=== PATIENT | female | born 1990 | race Caucasian/White ===

== ENCOUNTER → 2018-10-26 | Outpatient (REF) | payer BC ==
[2018-10-26 22:45] LABS: CHLAMYDIA DNA AMPLIFICATION NEGATIVE (NEGATIVE); GC DNA AMPLIFICATION NEGATIVE (NEGATIVE)
== END ==
LOC: M LABDRWAD 19:26
PROVIDERS: ATTEND Obstetrics & Gynecology
DX: Z34.82 Encounter for supervision of other normal pregnancy, second trimester (principal); Z3A.00 Weeks of gestation of pregnancy not specified

== ENCOUNTER → 2018-11-07 | Outpatient (CLI) | payer BC ==
--- NOTE | 2018-11-08 03:01 | REP ---
Clinical: Anatomical evaluation. Comparison: Cephalic . Findings: Examination demonstrates a single live intrauterine in cephalic presentation. motion is identified by technologist. Placenta is noted fundally and grade 1 without evidence for placenta previa or abruption. Amniotic fluid volume is normal. Cervix measures 3.1 cm in length and appears closed. No evidence for nuchal cord. Gestational age by LMP 20 weeks 6 days with SONALI 03/21/2019 . Gestational age by current measurements 20 weeks 6 days with SONALI 03/21/2019 . FHR equals 139 beats per minute. BPD 4.8 cm 20 weeks 3 days HC 17.7 cm 20 weeks 1 day AC 16.7 cm 21 weeks 5 days FL 3.3 cm 20 weeks 2 days HL 3.4 cm 21 weeks 3 days HC/AC ratio 1.06 Estimated weight 390 grams ( 49 percentile). Anatomical assessment demonstrates normal structures including cranium, choroid plexus, cavum, cerebellum/posterior fossa, facial features, lungs, four-chamber heart/ventricular outflow tracts, diaphragm, stomach, cord insertion/three-vessel cord, kidneys/bladder, spine, and extremities. Impression: Single live intrauterine in cephalic presentation demonstrating appropriate interval growth. 2. Anatomical assessment is complete and normal. Electronically Signed by Sohan Dumont MD 11/08/2018 02:53 A
== END ==
LOC: M RAD 16:10
PROVIDERS: ATTEND Obstetrics & Gynecology
DX: Z34.82 Encounter for supervision of other normal pregnancy, second trimester (principal); Z3A.20 20 weeks gestation of pregnancy

== ENCOUNTER → 2018-12-26 | Outpatient (CLI) | payer BC ==
[2018-12-26 18:17] LABS: BASO % 0.2 % (0.0-1.0); EOS # 0.2 10^3/uL (0.0-0.50); EOS % 1.4 % (0.0-3.0); HEMATOCRIT 33.7 % (36.0-47.0); HEMOGLOBIN 10.9 g/dl (12.0-15.5); LYMPH # 1.9 10^3/uL (1.5-6.5); LYMPH % 16.1 % (24.0-44.0); MEAN CORPUSCULAR HEMOGLOBIN 29.7 pg (27.0-33.0); MEAN CORPUSCULAR HGB CONC 32.3 g/dl (32.0-36.5); MEAN CORPUSCULAR VOLUME 91.8 fl (80.0-96.0); MONO # 0.7 10^3/uL (0.0-0.8); NEUTROPHILS # 8.9 10^3/uL (1.8-7.7); NEUTROPHILS % 75.4 % (36.0-66.0); PLATELET COUNT, AUTOMATED 265 10^3/uL (150-450); RED BLOOD COUNT 3.67 10^6/uL (4.00-5.40); WHITE BLOOD COUNT 11.8 10^3/uL (4.0-10.0)
== END ==
LOC: M SMT 13:01
PROVIDERS: ATTEND Specialist
DX: Z34.82 Encounter for supervision of other normal pregnancy, second trimester (principal); Z3A.00 Weeks of gestation of pregnancy not specified

== ENCOUNTER → 2019-01-03 | Outpatient (CLI) | payer BC | LOC: M LAB 07:10 | PROVIDERS: ATTEND Obstetrics & Gynecology | DX: Z34.82 Encounter for supervision of other normal pregnancy, second trimester (principal); Z3A.00 Weeks of gestation of pregnancy not specified ==

== ENCOUNTER → 2019-02-28 | Outpatient (REF) | payer BC | LOC: M LAB REF 17:02 | PROVIDERS: ATTEND Advanced Practice Midwife | DX: Z34.03 Encounter for supervision of normal first pregnancy, third trimester (principal) ==

== ENCOUNTER → 2019-03-01 | Outpatient (CLI) | payer BC | LOC: M SMT 10:58 | PROVIDERS: ATTEND Advanced Practice Midwife | DX: Z34.03 Encounter for supervision of normal first pregnancy, third trimester (principal); Z3A.00 Weeks of gestation of pregnancy not specified ==

== ENCOUNTER 2019-04-05 06:39 | Inpatient (IN) | payer BC ==
[~2019-04-05] VITALS: Ht 154.9 cm; Wt 91.4 kg
[2019-04-05] VITALS (18 sets, daily range): BP systolic 118–161; BP diastolic 70–97
[2019-04-05] MEDS ORDERED: PRENTAB9 PO (08:33)
[2019-04-05] MEDS ORDERED: FLON1SPR NARES (08:33)
[2019-04-05] MEDS ORDERED: VALA500T5 PO (08:33)
[2019-04-05] MEDS ORDERED: OXYTOCIN DRIP 30 UNITS in IV 1 EA IV SCH (08:45)
[2019-04-05] MEDS: LR 1,000 ML IV SCH ×2 (08:52→16:43)
--- NOTE | 2019-04-05 09:11 | HPE ---
DATE OF ADMISSION: 04/05/2019 Susana is a 28-year-old, 1, para 0, at 41 weeks gestation, expected date of confinement (EDC) of 03/29/2019 based on first trimester ultrasound. She presents to labor and delivery today for induction of labor per consult with Dr. Chiki Ngo due to post-term . She denies any regular painful contractions, vaginal bleeding and leakage of fluid. The fetus has been active. Her care was initiated at [facility] in the first trimester. 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 She has been taking Valtrex prophylactically since week 36. OBSTETRICAL HISTORY: Primigravida. OBSTETRIC LABS: A+. Antibody screen negative. ASCUS, HPV negative Pap. Varicella immune, rubella immune, VDRL nonreactive. Urine culture no growth. Hepatitis B surface antigen has not been ordered and will be ordered today. Her HIV is negative. Hepatitis C antibody not done. Gonorrhea and chlamydia negative. Lead negative. Genetic screening labs negative for aneuploidy. Gestational diabetic screening abnormal at 171 with a normal 3-hour glucose tolerance test - fasting 83, 1-hour 151, 2-hour 149 and 3-hour 128. GBS is negative. PAST MEDICAL HISTORY: Anxiety, depression, seasonal allergies, abnormal Pap smear, childhood varicella. SURGERIES: Colposcopy. FAMILY HISTORY: Rheumatoid arthritis, cerebrovascular accidents, autism. SOCIAL HISTORY: The patient is . Her is at bedside and supportive. She is a nonsmoker. Denies alcohol and drug use. She has a remote history of chlamydia. Denies history of abuse - physical, sexual and emotional. CURRENT MEDICATIONS: - Valtrex 500 by mouth twice a day - vitamin ALLERGIES: - SUPRAX - CECLOR OBJECTIVE: Temperature 97.2, pulse 146, BP is 138/84. She is alert and oriented times three. heart rate is 150 with moderate variability, positive accelerations, negative decelerations. No pattern of regular contractions. Abdomen is gravid, cephalic presentation. Estimated weight 7 pounds 11 ounces. Sterile Vaginal Exam: 2 cm dilated, 80% effaced, -1 station, mid position and normal show with the exam. ASSESSMENT: 1. Intrauterine at 41 weeks. 2. heart rate category one. 3. Post-term . PLAN: Admit patient to labor and delivery. Routine labs with the addition of a pre-eclamptic profile and spot urine due to elevated pressure upon arrival, however, the patient is anxious. The patient will have IV Pitocin started for labor induction. Risks, benefits and alternatives have been reviewed. The patient and her have had their questions answered and she has been verbally consented for emergency surgery and blood products if necessary. I do anticipate labor and the patient does desire an epidural when she is uncomfortable.
[2019-04-05 09:47] LABS: ALT/SGPT 14 U/L (12-78); BILIRUBIN,TOTAL 0.3 MG/DL (0.2-1.0); CREATININE FOR GFR 0.89 MG/DL (0.55-1.30); GLOMERULAR FILTRATION RATE > 60.0 (>60); HEMATOCRIT 33.9 % (36.0-47.0); HEMOGLOBIN 10.6 g/dl (12.0-15.5); LDH LACTATE DEHYDROGENASE 207 U/L (84-246); MEAN CORPUSCULAR HEMOGLOBIN 25.1 pg (27.0-33.0); MEAN CORPUSCULAR HGB CONC 31.3 g/dl (32.0-36.5); MEAN CORPUSCULAR VOLUME 80.1 fl (80.0-96.0); PLATELET COUNT, AUTOMATED 258 10^3/uL (150-450); RED BLOOD COUNT 4.23 10^6/uL (4.00-5.40); WHITE BLOOD COUNT 11.3 10^3/uL (4.0-10.0)
[2019-04-05] MEDS: miSOPROStol 50 MCG 1/2 TAB (S0191) PO SCH ×2 (20:04→23:30)
[2019-04-06] VITALS (31 sets, daily range): BP systolic 103–135; BP diastolic 55–99
[2019-04-06] MEDS: miSOPROStol 50 MCG 1/2 TAB (S0191) PO SCH (03:30)
[2019-04-06] MEDS ORDERED: OXYTOCIN 30 UNITS IN 0.9% NaCl 500ML IV BAG (J2590) As Ordered ONE (09:50)
[2019-04-06] MEDS ORDERED: OXYTOCIN DRIP 30 UNITS in IV 1 EA IV SCH (10:00)
[2019-04-06] MEDS: LR 1,000 ML IV SCH ×4 (10:10→20:22)
[2019-04-06 12:55] LABS: HEMATOCRIT 32.6 % (36.0-47.0); HEMOGLOBIN 10.1 g/dl (12.0-15.5); MEAN CORPUSCULAR HEMOGLOBIN 24.7 pg (27.0-33.0); MEAN CORPUSCULAR VOLUME 79.7 fl (80.0-96.0); PLATELET COUNT, AUTOMATED 244 10^3/uL (150-450); RED BLOOD COUNT 4.09 10^6/uL (4.00-5.40); WHITE BLOOD COUNT 11.4 10^3/uL (4.0-10.0)
[2019-04-06] MEDS ORDERED: FENTANYL 2MCG/ML ROPIVACAINE 0.2% IN 0.9% NACL 100ML IVBAG As Ordered ONE (14:17)
[2019-04-06] MEDS ORDERED: EPIDURAL/PCA KEYS XX PRN (16:15)
[2019-04-06] MEDS ORDERED: FENTANYL/ROPIVACAINE/NACL BAG 100 ML EPIDURAL SCH (16:15)
[2019-04-06] MEDS ORDERED: ePHEDrine SULFATE 25 MG/5 ML(5MG/ML) SYRINGE IV PRN (16:15)
[2019-04-06] MEDS ORDERED: LACTATED RINGER'S 1000 ML IV PRN (16:15)
[2019-04-06] MEDS ORDERED: NALOXONE INJ 0.4 MG/1 ML VIAL (J2310) IV PRN (16:15)
[2019-04-06] MEDS ORDERED: diphenhydrAMINE INJ 50MG/ML VIAL (J1200) IV PRN (16:15)
[2019-04-06] MEDS ORDERED: EPIDURAL COMMENT XX SCH (16:15)
[2019-04-06] MEDS ORDERED: REFRIGERATOR IV KEYS XX PRN (16:15)
[2019-04-06] MEDS ORDERED: ONDANSETRON 4MG/2ML VIAL (J2405) IV PRN (16:15)
[2019-04-06] MEDS ORDERED: ceFAZolin 2 GM/D5W 50 ML IV BAG (J0690 PER 500MG) As Ordered ONE (23:57)
[2019-04-06] MEDS ORDERED: BICITRA 30ML SOLN UDC As Ordered ONE (23:58)
[2019-04-07] VITALS (9 sets, daily range): BP systolic 119–135; BP diastolic 62–86
[2019-04-07] MEDS ORDERED: OXYTOCIN INJ 10 UNITS/ML VIAL (J2590) As Ordered ONE (00:09)
[2019-04-07] MEDS ORDERED: LIDOCAINE 2% W/EPIN INJ 20ML **PRES FREE As Ordered ONE (00:13)
[2019-04-07] MEDS ORDERED: UNASYN 3 GM VIAL As Ordered ONE (00:13)
[2019-04-07] MEDS ORDERED: SODIUM BICARBONATE 8.4% INJ 50MEQ 50 ML VIAL As Ordered ONE (00:14)
[2019-04-07] MEDS ORDERED: BICITRA 30ML SOLN UDC PO ONE (00:15)
[2019-04-07] MEDS ORDERED: AMPICILLIN SOD/SULBACTAM SOD 3 GM in D5W MINI-BAG PLUS 100 ML IV ONE (00:15)
[2019-04-07] MEDS ORDERED: AZITHROMYCIN INJ 500 MG, VIAL MATE ADAPTER 1 EACH in D5W 250 ML IV ONE (00:15)
[2019-04-07] MEDS ORDERED: MIDAZOLAM INJ 2 MG/2 ML VIAL (J2250) As Ordered ONE (00:49)
[2019-04-07] MEDS ORDERED: fentaNYL 100 MCG/2 ML INJECTION (J3010) As Ordered ONE (00:50)
[2019-04-07] MEDS ORDERED: MORPHINE PRES-FREE INJ 10 MG/10 ML VIAL (J2274) As Ordered ONE (00:56)
[2019-04-07] MEDS ORDERED: METOCLOPRAMIDE INJ 10MG/2ML VIAL (J2765) IV PRN (01:07)
[2019-04-07] MEDS ORDERED: NALBUPHINE HCL 10 MG/ML AMP (J2300) IV PRN (01:07)
[2019-04-07] MEDS ORDERED: KETOROLAC 60 MG/2 ML VIAL (J1885) As Ordered ONE (01:07)
[2019-04-07] MEDS ORDERED: ONDANSETRON 4MG/2ML VIAL (J2405) IV PRN ×3 (01:07→01:45)
[2019-04-07] MEDS ORDERED: diphenhydrAMINE INJ 50MG/ML VIAL (J1200) IV PRN (01:07)
[2019-04-07] MEDS ORDERED: NALOXONE INJ 0.4 MG/1 ML VIAL (J2310) IV PRN ×2 (01:07)
[2019-04-07] MEDS ORDERED: OXYTOCIN DRIP 30 UNITS in IV 1 EA IV SCH (01:39)
[2019-04-07] MEDS ORDERED: LR 1,000 ML IV SCH (01:39)
[2019-04-07] MEDS ORDERED: MEASLES,MUMPS,RUBELLA VACCINE INJ (MMR-II) (90707) SC SCH (01:45)
[2019-04-07] MEDS ORDERED: oxyCODONE 5MG TAB PO PRN (01:45)
[2019-04-07] MEDS ORDERED: PROMETHAZINE 25 MG TAB PO PRN (01:45)
[2019-04-07] MEDS ORDERED: fentaNYL 100 MCG/2 ML INJECTION (J3010) IV PRN (01:45)
[2019-04-07] MEDS ORDERED: RHOGAM 300 MCG (1500 IU) INJ (J2790) IM SCH (01:45)
[2019-04-07] MEDS ORDERED: ACETAMINOPHEN 500 MG TAB PO PRN (01:45)
[2019-04-07] MEDS ORDERED: COLA100C5 PO (01:54)
[2019-04-07] MEDS ORDERED: IBUP80TA PO (01:54)
[2019-04-07] MEDS ORDERED: PERCOCET PO (01:54)
[2019-04-07] MEDS ORDERED: OXYTOCIN 30 UNITS IN 0.9% NaCl 500ML IV BAG (J2590) As Ordered ONE (02:02)
[2019-04-07] MEDS: PERCOCET 5MG/325MG TAB PO PRN ×4 (04:05→20:51)
[2019-04-07] MEDS: DOCUSATE SODIUM 100 MG CAP PO SCH ×2 (07:31→20:30)
[2019-04-07] MEDS: PRENATAL VITAMINS CHEWABLE TABLET PO SCH (07:32)
[2019-04-07] MEDS: KETOROLAC 30 MG/ML VIAL (J1885) IV SCH ×3 (07:32→19:26)
[2019-04-07] MEDS ORDERED: SLF 3 ML SYR IV PRN (11:30)
[2019-04-08 02:30] VITALS: BP 126/67
[2019-04-08] MEDS: IBUPROFEN 800 MG TAB PO SCH ×3 (02:51→19:22)
[2019-04-08] MEDS: PERCOCET 5MG/325MG TAB PO PRN ×5 (02:51→23:27)
[2019-04-08 05:36] VITALS: BP 127/69
--- NOTE | 2019-04-08 06:32 | IPNPDOC ---
Text Note Date of Service The patient was seen on 04/08/19. NOTE PO #1 Feels well. Adequate pain management. . Voiding QS VSS, afebrile and normotensive Breasts soft, nipples intact Fundus firm Dressing dry and intact Lochia rubra light without odor PO #1 Routine care. Anticipate D/C in am VS,Fishbone, I+O VS, Fishbone, I+O Vital Signs Date Time Temp Pulse Resp B/P (MAP) Pulse Ox O2 Delivery O2 Flow Rate FiO2 04/08/19 05:36 97.6 97 16 127/69 (88) 99 I&O- Last 24 Hours up to 6 AM 04/08/19 06:00 Intake Total 840 ml Output Total 1200 ml Balance -360 ml Marisol Lance CNM Apr 08, 2019 06:32
[2019-04-08 07:25] LABS: HEMATOCRIT 25.9 % (36.0-47.0); MEAN CORPUSCULAR HEMOGLOBIN 25.1 pg (27.0-33.0); MEAN CORPUSCULAR HGB CONC 30.9 g/dl (32.0-36.5); MEAN CORPUSCULAR VOLUME 81.2 fl (80.0-96.0); PLATELET COUNT, AUTOMATED 204 10^3/uL (150-450); RED BLOOD COUNT 3.19 10^6/uL (4.00-5.40); WHITE BLOOD COUNT 11.1 10^3/uL (4.0-10.0)
[2019-04-08] MEDS: DOCUSATE SODIUM 100 MG CAP PO SCH ×2 (08:19→20:55)
[2019-04-08] MEDS: PRENATAL VITAMINS CHEWABLE TABLET PO SCH (08:19)
[2019-04-08 10:24] VITALS: BP 123/75
[2019-04-08 14:51] VITALS: BP 123/68
[2019-04-08 17:48] VITALS: BP 125/76
[2019-04-08 22:01] VITALS: BP 136/83
[2019-04-09 02:30] VITALS: BP 117/73
[2019-04-09] MEDS: IBUPROFEN 800 MG TAB PO SCH (02:45)
[2019-04-09] MEDS: PERCOCET 5MG/325MG TAB PO PRN ×3 (02:46→13:27)
[2019-04-09 06:17] VITALS: BP 135/83
[2019-04-09] MEDS: PRENATAL VITAMINS CHEWABLE TABLET PO SCH (07:57)
[2019-04-09] MEDS: DOCUSATE SODIUM 100 MG CAP PO SCH (07:57)
--- NOTE | 2019-04-18 14:52 | DSES ---
DATE OF ADMISSION: 04/05/2019 DATE OF DISCHARGE: 04/09/2019 DISCHARGE DIAGNOSIS: section for arrest of descent. DISCHARGE CONDITION: Stable. PROCEDURES PERFORMED WHILE IN HOSPITAL: 1. Epidural. 2. section. HISTORY AND HOSPITAL COURSE: This patient presented for scheduled induction of labor at 41 weeks. She made it to complete dilation, completely effaced. Started to push. Had persistent category II tracing and was then consented for primary section, which was uncomplicated. Productive of a live born male infant. score 9 and 9. Weight was 4080 grams. Estimated blood loss 600 mL. Ms. Burnett did well postoperatively. By postoperative day #2 had met all discharge criteria and was discharged home in stable condition. PHYSICAL EXAM: On date of discharge, her vital signs were stable. She was afebrile. General appearance was well appearing, in no acute distress. Her abdomen was soft. Fundus was below umbilicus. Appropriate tender. Incision was dressed. Extremities: Negative for calf tenderness. DISCHARGE MEDICATIONS: - ibuprofen - Percocet - Colace DISCHARGE INSTRUCTIONS: 1. She was instructed to followup in 2 weeks for an incision check. 2. Report severe pain, heavy vaginal bleeding, fever, incisional issues. 3. Removed her dressing in 5-7 days.
== END 2019-04-09 14:30 | disposition home or self-care (01) | DRG 560 ==
LOC: M LDI 06:39 → M OBS 04-07 03:21
PROVIDERS: ADMIT Specialist; ATTEND Obstetrics & Gynecology
PROC: 3E033VJ Introduction of Other Hormone into Peripheral Vein, Percutaneous Approach (ICD-10-PCS; 2019-04-05)
PROC: 10E0XZZ Delivery of Products of Conception, External Approach (ICD-10-PCS; principal; 2019-04-07 00:15)
DX: O48.0 Post-term pregnancy (principal); O64.0XX0 Obstructed labor due to incomplete rotation of fetal head, not applicable or unspecified; O76 Abnormality in fetal heart rate and rhythm complicating labor and delivery; Z3A.41 41 weeks gestation of pregnancy; Z37.0 Single live birth

== ENCOUNTER → 2019-04-24 | Outpatient (REF) | payer BC ==
[~2019-04-24] MED LIST: COLA100C5 PO; FLON1SPR NARES; IBUP80TA PO; PERCOCET PO; PRENTAB9 PO; VALA500T5 PO
== END ==
LOC: M LAB REF 16:54
PROVIDERS: ATTEND Advanced Practice Midwife
DX: R30.0 Dysuria (principal)

== ENCOUNTER → 2019-07-19 | Outpatient (REF) | payer BC | LOC: M LAB REF 17:09 | PROVIDERS: ATTEND Obstetrics & Gynecology | DX: Z12.4 Encounter for screening for malignant neoplasm of cervix (principal) ==

== ENCOUNTER → 2020-06-25 | Outpatient (REF) | payer BC | LOC: M SFHCWAGY 10:23 | PROVIDERS: ATTEND Advanced Practice Midwife | DX: Z12.4 Encounter for screening for malignant neoplasm of cervix (principal); Z01.419 Encounter for gynecological examination (general) (routine) without abnormal findings ==

== ENCOUNTER → 2021-04-29 | Outpatient (CLI) | payer BC, OTHER | LOC: M WHC 09:27 | PROVIDERS: ATTEND Advanced Practice Midwife | DX: N92.0 Excessive and frequent menstruation with regular cycle (principal); N83.202 Unspecified ovarian cyst, left side ==

== ENCOUNTER → 2021-04-29 | Outpatient (CLI) | payer BC, OTHER ==
[2021-04-29 13:12] LABS: FREE T4 0.93 NG/DL (0.76-1.46); PROLACTIN 6.2 NG/ML; THYROID STIMULATING HORMONE 1.16 uIU/ML (0.358-3.740)
[2021-05-03 05:07] LABS: 17 HYDROXY PROGESTERONE 94 ng/dL (.); INSULIN LEVEL 11.3 uIU/mL (2.6-24.9); TESTOSTERONE FREE (DIRECT) 1.9 pg/mL (0.0-4.2)
== END ==
LOC: M PLALAB 08:51
PROVIDERS: ATTEND Advanced Practice Midwife
DX: N92.0 Excessive and frequent menstruation with regular cycle (principal)

== ENCOUNTER → 2021-07-22 | Outpatient (REF) | payer BC, OTHER | LOC: M SFHCWAGY 17:12 | PROVIDERS: ATTEND Advanced Practice Midwife | DX: Z12.4 Encounter for screening for malignant neoplasm of cervix (principal) | CPT/HCPCS: 87624; G0123 ==